=== PATIENT | male | born 2000 | race Caucasian/White ===

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

== ENCOUNTER → 2020-05-10 09:21 | Outpatient (CLI) | payer BC, SELFPAY ==
--- NOTE | ~2020-05-10 | XR_ITS ---
EXAMINATION: XR chest 2V EXAM DATE: 05/10/2020 09:35 INDICATION: Shortness of breath, random chest pain. TECHNIQUE: Frontal and lateral projections of the chest obtained and reviewed. There is no prior cathryn dy for comparison. FINDINGS: The lungs are clear. There are no pleural effusions. The cardiomediastinal silhouette is within normal limits. There is no pneumothorax suspected. The bones and soft tissues are unremarkab le. IMPRESSION: Normal chest x-ray exam. Reviewed, dictated and finalized at location A. D DEVELOPMENT ASSISTANT IMPRESSION: Normal chest x-ray exam.
== END ==
PROVIDERS: PCP Nurse Practitioner Family; Visit Provider Nurse Practitioner Family
DX: R05 Cough (principal)
CPT/HCPCS: 71046

== ENCOUNTER → 2021-05-01 14:17 | Outpatient (CLI) | payer BC, SELFPAY ==
--- NOTE | ~2021-05-01 | XR_ITS ---
EXAMINATION: XR hand RT min 3V, XR wrist RT min 3V DATE: 05/01/2021 15:24 INDICATION: Right hand pain TECHNIQUE: 1. Posteroanterior, ulnar deviation, oblique, and lateral views of the right wrist were obtained. 2. Dorsal palmar, oblique and lateral views of the right hand were obtained. COMPARISON: None. FINDINGS: Alignment of the right hand and wrist are normal. No fracture identified. Joint spaces are normal. N o focal soft tissue swelling. IMPRESSION: 1. Negative right hand and wrist radiographs. Reviewed, dictated and finalized at location A. E INSPECTOR IMPRESSION: 1. Negative right hand and wrist radiographs.
== END ==
PROVIDERS: PCP Nurse Practitioner Family; Visit Provider Nurse Practitioner Family
DX: M79.641 Pain in right hand (principal)
CPT/HCPCS: 73110; 73130

== ENCOUNTER 2023-03-29 16:48 | Emergency (ER) | payer SELFPAY ==
[2023-03-29 16:55] VITALS: BP 137/86; PULSE 70; RESP 18; TEMP 36.1; O2SAT 100
--- NOTE | 2023-03-29 19:58 | PC.NURSE ---
patient called without answer in the waiting room.
--- NOTE | 2023-03-29 20:27 | PC.NURSE ---
pt called for second time from triage, no answer
== END 2023-03-29 21:20 | disposition left against medical advice (07) ==
PROVIDERS: PCP Nurse Practitioner Family
DX: S01.111A Laceration without foreign body of right eyelid and periocular area, initial encounter (principal); W54.1XXA Struck by dog, initial encounter
CPT/HCPCS: 99199

== ENCOUNTER 2023-06-15 20:10 | Emergency (ER) | payer BC, SELFPAY ==
--- NOTE | ~2023-06-15 | XR_ITS ---
PA and lateral views of the right index finger CLINICAL HISTORY: Removed hook from second finger FINDINGS: No fracture or dislocation seen. Joint spaces are preserved. Soft tissues are unremarkable. No radiopaque foreign body seen. IMPRESSION: No radiopaque foreign body seen. No abnormality seen. Reviewed, dictated and finalized at [facility].
[2023-06-15 20:32] VITALS: BP 140/86; PULSE 85; RESP 16; TEMP 36.5; O2SAT 96
--- NOTE | 2023-06-15 20:54 | PC.NURSE ---
Pt refusing xray at this time.
--- NOTE | 2023-06-15 21:35 | ED.WOUNDLAC ---
HPI - Wound/Laceration General Chief Complaint: Wound/Laceration Stated Complaint: fish hook to right index finger Time Seen by Provider: 06/15/23 21:20 History of Present Illness HPI narrative: 23-year-old male presents to emergency department for a fishhook in his right 2nd finger that occurred prior to arrival. Patient states he was fishing in a pond when he pulled back on the line in the flesh stuck in his finger. Denies difficulty with range of motion paresthesias. Last tetanus unknown. Related Data Allergies Allergy/AdvReac Type Severity Reaction Status Date / Time No Known Allergies Allergy Verified 03/29/23 16:53 Review of Systems Review of Systems: CONSTITUTIONAL: Denies fever, chills, or sweats. EYES: Denies visual changes, redness, or discharge. ENT: Denies rhinorrhea, congestion, sore throat, or otalgia. CARDIOVASCULAR: Denies chest pain, palpitations, or edema. RESPIRATORY: Denies cough or dyspnea. GASTROINTESTINAL: Denies abdominal pain, nausea, vomiting, or diarrhea. GENITOURINARY: Denies dysuria or hematuria. SKIN: See HPI MUSCULOSKELETAL: Denies back pain, joint pain, or myalgia. NEUROLOGIC: Denies headache, numbness, or weakness. PSYCHIATRIC: Denies anxiety or depression. [facility] Family History Family History Grandparent Depression Mother Patient's mother is in good health Other Family history of attention deficit hyperactivity disorder (ADHD) Social History Social History Second hand tobacco smoke exposure: No Exam Narrative: GENERAL: Well-appearing, well-nourished, and in no acute distress. HEAD: Normocephalic, atraumatic. NECK: Supple. CHEST: Clear to auscultation. No respiratory distress. HEART: Regular rate and rhythm. No murmur heard. Normal peripheral pulses. EXTREMITIES: Normal range of motion. No edema. SKIN: [place] lodged in the middle phalanx of the 2nd digit on the dorsal side. No active bleeding. Full range of motion of finger, cap refill less than 2. Sensation intact. NEURO: No focal deficits. Alert and oriented x3 Course Vital Signs Vital signs: Vital Signs Temperature 97.7 F 06/15/23 20:32 Pulse Rate 85 06/15/23 20:32 Respiratory Rate 16 06/15/23 20:32 Blood Pressure 140/86 06/15/23 20:32 Pulse Oximetry 96 06/15/23 20:32 Oxygen Delivery Room Air 06/15/23 20:32 Temperature 97.7 F 06/15/23 20:32 Pulse Rate 67 06/15/23 23:46 Respiratory Rate 14 06/15/23 23:46 Blood Pressure 135/74 06/15/23 23:46 Pulse Oximetry 99 06/15/23 23:46 Oxygen Delivery Room Air 06/15/23 20:32 Procedures Foreign Body Removal Foreign Body #1: Foreign Body Removal Date: 06/15/23 Foreign Body Removal Time: 22:06 Time Out Performed: yes Site: right Description of foreign body: fish hook Sedation/Analgesia: other (digital block with 1% lidocaine) Technique: manual removal Confirmed by:: direct visualization and radiograph Complications: none Post-procedure exam: awake, alert Neurovascular: normal capillary fill, distal light touch sensation intact, distal motor function normal, no signs of compartment syndrome and no change from pre-procedure MDM - Wound/Laceration MDM Narrative Medical decision making narrative: 23-year-old male presents to the emergency department with a fishhook in his 2nd right finger. He is neurovascularly intact. Vitals are stable. Digital block performed in fishhook adequately removed without complications. X-ray of the finger shows no foreign bodies. Finger soaked in Betadine and saline and bandaged applied. Will start him on Keflex and Levaquin for pond water exposure and have a follow-up closely with his PCP. First doses provided here. Strict ED return precautions discussed. He is agreeable to plan verbalized understanding
[2023-06-15] MEDS: TETANUS,DIPHTHERIA,AC PERTUSSIS ADULT (0.5 ML) BOOSTRIX IM (21:43)
[2023-06-15] MEDS: LIDOCAINE HCL 1% LOCAL INJ 10 ML VIAL INFILTRATE (21:48)
--- NOTE | 2023-06-15 22:39 | PC.NURSE ---
Patient went down to xray and refused to have xray done. ERP notified.
--- NOTE | 2023-06-15 22:43 | PC.NURSE ---
Patient spoke with PA, patient now agreeable to xray. Patient taken back to xray.
[2023-06-15] MEDS: levoFLOXacin 750 MG TABLET PO (23:42)
[2023-06-15] MEDS: CEPHALEXIN 500 MG CAPSULE PO (23:42)
[2023-06-15 23:46] VITALS: BP 135/74; PULSE 67; RESP 14; O2SAT 99
== END 2023-06-15 23:48 | disposition home or self-care (01) ==
LOC: ANHED 23:27
PROVIDERS: Emergency Provider Physician Assistant; PCP Nurse Practitioner Family
DX: S60.450A Superficial foreign body of right index finger, initial encounter (principal); Z23 Encounter for immunization; W45.8XXA Other foreign body or object entering through skin, initial encounter
CPT/HCPCS: 73140; 90471; 90715; 99283; A9270